=== PATIENT | male | born 2000 | race Asian ===

== ENCOUNTER 2022-12-29 10:26 | Emergency (ER) | payer OTHER ==
--- NOTE | 2022-12-29 11:49 | XRAY Report ---
PROCEDURE: Ankle 3 View RT INDICATIONS: Trauma TECHNIQUE: 3 views of the ankle were acquired. COMPARISON: None. FINDINGS: Bones: No fractures or dislocations. Ankle mortise is normally aligned. No suspicious bony lesions . A benign-appearing lucency in calcaneus, probably a cyst or intraosseous lipoma. Soft tissues: No tibiotalar joint effusion. Achilles tendon appears normal. IMPRESSION: No acute bony abnormality. If clinical symptoms persist, consider advanced imaging such as MRI. Reviewed by: Hanny Gregg MD on 12/29/2022 11:48 AM PDT Approved by: Hanny Gregg MD on 12/29/2022 11:48 AM PDT Station ID: [id number]
--- NOTE | 2022-12-29 12:21 | ED Physician Documentation ---
History of Present Illness - Stated complaint Stated Complaint: RT PX,SWELLING - Chief complaint Chief Complaint: Ext Problem - Additonal information Additional information: 22-year-old male presents emergency department for evaluation of 5 days right ankle pain. He states that he has had this pain intermittently for the last several years. Usually occurs after walking or running. Same started about 5 days ago. However he denies any falls or trauma. No fevers. Pain is mostly on the lateral side of the ankle with mild swelling but no ecchymosis or erythema. He has difficulty bearing weight Review of Systems Constitutional: denies: Fever Musculoskeletal: reports: Joint pain PD PAST MEDICAL HISTORY - Past Medical History Past Medical History: No - Present Medications Home Medications: Ambulatory Orders Medication Instructions Recorded Confirmed No Known Home Medications 12/29/22 12/29/22 - Allergies Allergies/Adverse Reactions: Allergies Allergy/AdvReac Type Severity Reaction Status Date / Time No Known Drug Allergies Allergy Verified 12/29/22 10:51 - Social History Does the pt smoke?: No Smoking Status: Never smoker PD ED PE NORMAL - General General: Alert and oriented X 3, No acute distress - Respiratory Respiratory: Clear bilaterally - Abdomen Abdomen: Normal bowel sounds, Soft, Non tender, Non distended - Extremities Extremities: Other (Mild tenderness with palpation just below the lateral malleoli region right ankle. Mild swelling but no ecchymosis or fevers noted. Full active and passive range of motion of the ankle. No pain at the base of the foot or the distal metatarsals. 2+ DP pulse.) Results - Vitals Vitals: Vital Signs - 24 hr 12/29/22 10:46 Temperature 36.6 C Heart Rate 64 Respiratory 20 Rate Blood Pressure 150/84 H O2 Saturation 96 Oxygen O2 Source Room air - Rads (name of study) right ankle Relevant Findings:: Final report received (No acute fracture or osseous lesion or dislocation.) PD Medical Decision Making - ED course Complexity details: reviewed results, re-evaluated patient, d/w patient ED course: 22-year-old male presents emergency department for evaluation of acute right ankle pain that began about 5 days ago without any trauma. He has had this intermittently for several years typically self resolving. On exam today he has some tenderness just below the right lateral malleoli region with some mild swelling but no ecchymosis or erythema. Clinically I have low suspicion for an infected joint. X-rays without obvious findings. I suspect he has a recurrent sprain given the recurrence over the last several years. Patient is placed in an air splint and given crutches. Advised follow-up with [facility]. If not markedly better in a week would benefit from a MRI or referral to orthopedist. Departure - Departure Disposition: 01 Home, Self Care Clinical Impression: Right ankle sprain Qualifiers: Encounter type: initial encounter Involved ligament of ankle: other ligament Qualified Code(s): S93.491A - Sprain of other ligament of right ankle, initial encounter Condition: Stable Record reviewed to determine appropriate education?: Yes Instructions: ED Sprain Ankle Comments: Cristo it looks like you probably have a recurrent sprain of your right ankle since this seems to recur over the last several years. I advise you to wear the air gel splint when out of bed for the next week. Use crutches. I recommend 600 mg of ibuprofen taken with food 2-3 times a day or alternate with 500 mg of Tylenol also 2-3 times a day. Because this is a recurrent ankle problem it is important you follow-up closely with [facility]. You may benefit from referral to physical therapy, consideration of an MRI or consideration of referral to orthopedics if not improving as anticipated.
[2022-12-29 12:46] VITALS: BP 146/75
== END 2022-12-29 12:41 | disposition home or self-care (01) ==
LOC: ED 10:26
DX: S93.491A Sprain of other ligament of right ankle, initial encounter (principal); X58.XXXA Exposure to other specified factors, initial encounter
CPT/HCPCS: 99283